=== PATIENT | female | born 1970 | race Caucasian/White ===

== ENCOUNTER 2022-04-07 13:09 | Emergency (ER) | payer MEDICAID, OTHER ==
[~2022-04-07] VITALS: Ht 162.6 cm; Wt 99.1 kg
[~2022-04-07 13:09] MED LIST: ASPI-1450 PO; INSU100C4 SQ; LISI-892 PO; METF-446 PO; OMEP20TA20 PO; SIMV-260 PO
[2022-04-07] MEDS ORDERED: IBUP-2070 PO (14:41)
[2022-04-07 15:00] VITALS: BP 120/77
== END 2022-04-07 15:10 | disposition home or self-care (01) ==
LOC: EMS 13:17
DX: G56.02 Carpal tunnel syndrome, left upper limb (principal); E11.9 Type 2 diabetes mellitus without complications; I10 Essential (primary) hypertension
CPT/HCPCS: 99283